=== PATIENT | female | born 1995 | race Caucasian/White ===

== ENCOUNTER 2019-08-21 08:35 | Emergency (ER) | payer BC ==
--- NOTE | 2019-08-21 08:40 | ERPHSYRPT ---
- History of Present Illness Time Seen by Provider: 08/21/19 08:40 Historian: patient Exam Limitations: no limitations Physician History: This is a 23-year-old white female who presents to the emergency department with sudden onset of right flank pain. Patient states that she thinks in the past she might of passed a kidney stone. Patient drove herself to the emergency department. She states that she can get a ride home. Patient denies nausea vomiting or diarrhea. Patient does not have chest pain and she is not short of breath. She is allergic to iodine. She is not on any medications at this time. Timing/Duration: today Activities at Onset: none Quality: sharpness, stabbing Abdominal Pain Onset Location: flank (Left flank) Pain Radiation: no radiation Severity of Pain-Max: moderate Severity of Pain-Current: moderate Modifying Factors: Improves With: nothing Associated Symptoms: denies symptoms Previous symptoms: no prior history Allergies/Adverse Reactions: Iodinated Contrast Media [Iodinated Contrast Media - IV Dye] Allergy (Mild, Verified 07/26/15 22:38) Hives iodine Allergy (Mild, Verified 07/26/15 22:38) Hives Home Medications: Citalopram Hydrobromide 20 mg* [ceLEXa 20 MG] 20 mg PO DAILY 07/26/15 [History] Dextroamphetamine/Amphetamine [Adderall 10 mg Tablet] 10 mg PO DAILY 07/26/15 [History] Hx Tetanus, Diphtheria Vaccination/Date Given: Yes Hx Influenza Vaccination/Date Given: Yes Hx Pneumococcal Vaccination/Date Given: No Travel Risk - International Travel Have you traveled outside of the country in past 3 weeks: No - Coronavirus Screening Are you exhibiting any of the following symptoms?: No Close contact with a COVID-19 positive Pt in past 14-21 Days: No - Review of Systems Constitutional: No Symptoms Eyes: No Symptoms Ears, Nose, & Throat: No Symptoms Respiratory: No Symptoms Cardiac: No Symptoms Abdominal/Gastrointestinal: No Symptoms Genitourinary Symptoms: Flank Pain (Left) Musculoskeletal: No Symptoms Skin: No Symptoms Neurological: No Symptoms Psychological: No Symptoms Endocrine: No Symptoms Hematologic/Lymphatic: No Symptoms Immunological/Allergic: No Symptoms All Other Systems: Reviewed and Negative - Past Medical History Pertinent Past Medical History: No Neurological History: No Pertinent History ENT History: No Pertinent History Cardiac History: No Pertinent History Respiratory History: No Pertinent History Endocrine Medical History: No Pertinent History Musculoskeletal History: No Pertinent History GI Medical History: No Pertinent History History: No Pertinent History Psycho-Social History: No Pertinent History Female Reproductive Disorders: No Pertinent History - Past Surgical History Past Surgical History: No Neuro Surgical History: No Pertinent History Cardiac: No Pertinent History Respiratory: No Pertinent History Gastrointestinal: No Pertinent History Genitourinary: No Pertinent History Musculoskeletal: No Pertinent History Female Surgical History: No Pertinent History - Social History Smoking Status: Never smoker Exposure to second hand smoke: No Drug Use: none Patient Lives Alone: No - Nursing Vital Signs Nursing Vital Signs: Initial Vital Signs Temperature 98.0 F 08/21/19 08:41 Pulse Rate 77 08/21/19 08:41 Respiratory Rate 20 08/21/19 08:41 Blood Pressure 151/106 08/21/19 08:41 O2 Sat by Pulse Oximetry 95 08/21/19 08:41 Pain Scale Pain Intensity 8 - Physical Exam General Appearance: moderate distress, alert, anxiety Eye Exam: PERRL/EOMI, eyes nml inspection Ears, Nose, Throat Exam: normal ENT inspection, moist mucous membranes Neck Exam: normal inspection, non-tender, supple, full range of motion Respiratory Exam: normal breath sounds, lungs clear, airway intact, No chest tenderness, No respiratory distress Cardiovascular Exam: regular rate/rhythm, normal heart sounds, normal peripheral pulses Gastrointestinal/Abdomen Exam: soft, normal bowel sounds, No tenderness, No guarding Pelvic Exam: not done Rectal Exam: not done Back Exam: normal inspection, normal range of motion, CVA tenderness (Left), No vertebral tenderness Extremity Exam: normal inspection, normal range of motion, pelvis stable Neurologic Exam: alert, oriented x 3, cooperative, sifter and miller II-XII nml as tested, normal mood/affect, nml cerebellar function, nml station & gait, sensation nml Skin Exam: normal color, warm, dry Lymphatic Exam: No adenopathy SpO2 Interpretation: normal - Course Nursing assessment & vital signs reviewed: Yes Ordered Tests: Active Orders 24 hr Category Date Time Status IV Insertion STAT Care 08/21/19 08:44 Active ABDOMEN AND PELVIS W/0 CONTRAS [CT] Stat Exams 08/21/19 08:45 Completed CBC W DIFF Stat Lab 08/21/19 08:57 Completed CMP Stat Lab 08/21/19 08:57 Completed HCG QUALITATIVE,SERUM Stat Lab 08/21/19 08:57 Completed LIPASE Stat Lab 08/21/19 08:57 Completed Lactic Acid Stat Lab 08/21/19 08:44 Completed UA W/RFX UR CULTURE Stat Lab 08/21/19 08:44 Uncollected Medication Summary Discontinued Medications Generic Name Dose Route Start Last Admin Trade Name Otonielq PRN Reason Stop Dose Admin Hydromorphone HCl 1 mg 08/21/19 08:44 08/21/19 09:03 Hydromorphone 1 Mg/Ml Ampule IV 08/21/19 08:45 1 mg STAT ONE Administration Hydromorphone HCl Confirm 08/21/19 08:59 Hydromorphone 1 Mg/Ml Ampule Administered 08/21/19 09:00 Dose 1 mg .ROUTE .STK-MED ONE Hydromorphone HCl 0.5 mg 08/21/19 10:28 Hydromorphone 1 Mg/Ml Ampule IV 08/21/19 10:29 STAT ONE Sodium Chloride 1,000 mls @ 999 mls/hr 08/21/19 08:44 08/21/19 09:02 Sodium Chloride 0.9% 1000 Ml IV 08/21/19 09:44 999 mls/hr .Q1H1M STA Administration Sodium Chloride Confirm 08/21/19 08:59 Sodium Chloride 0.9% 1000 Ml Administered 08/21/19 09:00 Dose 1,000 mls @ ud .ROUTE .STK-MED ONE Ketorolac Tromethamine 30 mg 08/21/19 09:42 08/21/19 10:06 Toradol 30 Mg Injection IV 08/21/19 09:43 30 mg STAT ONE Administration Ketorolac Tromethamine Confirm 08/21/19 10:05 Toradol 30 Mg Injection Administered 08/21/19 10:06 Dose 30 mg .ROUTE .STK-MED ONE Ondansetron HCl 4 mg 08/21/19 08:44 08/21/19 09:03 Zofran 4 Mg/2 Ml Vial IV 08/21/19 08:45 4 mg STAT ONE Administration Ondansetron HCl Confirm 08/21/19 08:59 Zofran 4 Mg/2 Ml Vial Administered 08/21/19 09:00 Dose 4 mg .ROUTE .STK-MED ONE Lab/Rad Data: Laboratory Result Diagrams 08/21/19 08:57 08/21/19 08:57 Laboratory Results 08/21/19 08/21/19 08/21/19 Range/Units 08:57 08:57 08:57 WBC 5.2 (4.0-10.5) K/mm3 RBC 4.31 (4.1-5.4) M/mm3 Hgb 12.8 (12.0-16.0) gm/dl Hct 39.3 (35-47) % MCV 91.2 (78-100) fl MCH 29.7 (26-32) pg MCHC 32.6 (32-36) g/dl RDW 13.1 (11.5-14.0) % Plt Count 308 (150-450) K/mm3 MPV 10.3 (7.5-11.0) fl Gran % 48.2 (36.0-66.0) % Eos # (Auto) 0.28 (0-0.5) Absolute Lymphs (auto) 1.75 (1.0-4.6) Absolute Monos (auto) 0.63 (0.0-1.3) Lymphocytes % 33.8 (24.0-44.0) % Monocytes % 12.2 H (0.0-12.0) % Eosinophils % 5.4 H (0.00-5.0) % Basophils % 0.4 (0.0-0.4) % Absolute Granulocytes 2.49 (1.4-6.9) Basophils # 0.02 (0-0.4) Sodium 143 (137-145) mmol/L Potassium 3.4 L (3.5-5.1) mmol/L Chloride 110 H (98-107) mmol/L Carbon Dioxide 25 (22-30) mmol/L Anion Gap 10.8 (5-15) MEQ/L BUN 8 (7-17) mg/dL Creatinine 0.82 (0.52-1.04) mg/dL Estimated GFR > 60.0 ML/MIN Glucose 110 H (74-106) mg/dL Lactic Acid (0.4-2.0) Calcium 9.4 (8.4-10.2) mg/dL Total Bilirubin 0.70 (0.2-1.3) mg/dL AST 23 (14-36) U/L ALT 10 (0-35) U/L Alkaline Phosphatase 58 (38-126) U/L Serum Total Protein 8.5 H (6.3-8.2) g/dL Albumin 4.5 (3.5-5.0) g/dL Lipase 65 (23-300) U/L Serum , Qual NEGATIVE (Negative) 08/21/19 Range/Units 08:44 WBC (4.0-10.5) K/mm3 RBC (4.1-5.4) M/mm3 Hgb (12.0-16.0) gm/dl Hct (35-47) % MCV (78-100) fl MCH (26-32) pg MCHC (32-36) g/dl RDW (11.5-14.0) % Plt Count (150-450) K/mm3 MPV (7.5-11.0) fl Gran % (36.0-66.0) % Eos # (Auto) (0-0.5) Absolute Lymphs (auto) (1.0-4.6) Absolute Monos (auto) (0.0-1.3) Lymphocytes % (24.0-44.0) % Monocytes % (0.0-12.0) % Eosinophils % (0.00-5.0) % Basophils % (0.0-0.4) % Absolute Granulocytes (1.4-6.9) Basophils # (0-0.4) Sodium (137-145) mmol/L Potassium (3.5-5.1) mmol/L Chloride (98-107) mmol/L Carbon Dioxide (22-30) mmol/L Anion Gap (5-15) MEQ/L BUN (7-17) mg/dL Creatinine (0.52-1.04) mg/dL Estimated GFR ML/MIN Glucose (74-106) mg/dL Lactic Acid 0.7 (0.4-2.0) Calcium (8.4-10.2) mg/dL Total Bilirubin (0.2-1.3) mg/dL AST (14-36) U/L ALT (0-35) U/L Alkaline Phosphatase (38-126) U/L Serum Total Protein (6.3-8.2) g/dL Albumin (3.5-5.0) g/dL Lipase (23-300) U/L Serum , Qual (Negative) - Progress Progress: improved, pain not gone completely, re-examined Progress Note: 08/21/19 10:29 CAT scan of the abdomen and pelvis reveals a 1 to 2 mm right UVJ calculus producing partial obstruction active uropathy. There is mild edema of the right kidney, the right ureter is prominent up to 8 mm. There is moderate hydronephrosis. Counseled pt/family regarding: lab results, diagnosis, need for follow-up, rad results - Departure Departure Disposition: Home Clinical Impression: Ureterolithiasis Condition: Stable Critical Care Time: No Additional Instructions: Drink plenty of fluids. Use ibuprofen 600 mg with food orally 3 times a day for the next 5 days. Take medication as prescribed. Follow-up with urologist. Call tomorrow for appointment. Return to the emergency department if symptoms worsen. Prescriptions: Hydrocodone/APAP 5-325 Tab^^^ [[place] 5-325 Tablet^^^] 1 tab PO Q6HPRN PRN #10 tablet MDD 6 PRN Reason: Pain
[2019-08-21] MEDS ORDERED: Sodium Chloride 0.9% 1000 ML 1,000 ML IV STA (08:44)
[2019-08-21] MEDS ORDERED: Zofran 4 MG/2 ML VIAL IV ONE (08:44)
[2019-08-21] MEDS ORDERED: Hydromorphone 1 mg/ml Ampule IV ONE ×2 (08:44→10:28)
[2019-08-21] MEDS ORDERED: Sodium Chloride 0.9% 1000 ML 1,000 ML ONE (08:59)
[2019-08-21] MEDS ORDERED: Hydromorphone 1 mg/ml Ampule ONE ×2 (08:59→10:41)
[2019-08-21] MEDS ORDERED: Zofran 4 MG/2 ML VIAL ONE (08:59)
[2019-08-21 09:14] LABS: Absolute Neutrophil Ct (ANC) 2.49 (1.4-6.9); BASOPHIL % 0.4 % (0.0-0.4); Basophil (Absolute #) 0.02 (0-0.4); Eosinophil % 5.4 % (0.00-5.0); Eosinophil (Absolute #) 0.28 (0-0.5); Hematocrit 39.3 % (35-47); Hemoglobin 12.8 gm/dl (12.0-16.0); Lymphocyte (Absolute #) 1.75 (1.0-4.6); Lymphocytes % 33.8 % (24.0-44.0); Mean Cell Volume 91.2 fl (78-100); Mean Corpuscular Hemoglobin 29.7 pg (26-32); Mean Corpuscular Hgb Concent. 32.6 g/dl (32-36); Mean Platelet Volume 10.3 fl (7.5-11.0); Monocyte (Absolute #) 0.63 (0.0-1.3); Monocytes % 12.2 % (0.0-12.0); Neutrophil % 48.2 % (36.0-66.0); Platelet Count 308 K/mm3 (150-450); Red Blood Count 4.31 M/mm3 (4.1-5.4); Red Cell Distribution Width 13.1 % (11.5-14.0); White Blood Count 5.2 K/mm3 (4.0-10.5)
[2019-08-21 09:34] LABS: ALBUMIN 4.5 g/dL (3.5-5.0); ALKALINE PHOSPHATASE 58 U/L (38-126); ANION GAP 10.8 MEQ/L (5-15); BLOOD UREA NITROGEN 8 mg/dL (7-17); CHLORIDE 110 mmol/L (98-107); Calcium 9.4 mg/dL (8.4-10.2); Carbon Dioxide 25 mmol/L (22-30); Creatinine 1 0.82 mg/dL (0.52-1.04); Glucose 110 mg/dL (74-106); LIPASE 65 U/L (23-300); Potassium 3.4 mmol/L (3.5-5.1); SGOT/AST 23 U/L (14-36); SGPT/ALT 10 U/L (0-35); SODIUM 143 mmol/L (137-145); Total Protein 8.5 g/dL (6.3-8.2)
[2019-08-21] MEDS ORDERED: TORAdol 30 mg Injection IV ONE (09:42)
[2019-08-21] MEDS ORDERED: TORAdol 30 mg Injection ONE (10:05)
--- NOTE | 2019-08-21 10:09 | XRAY ---
Indication: Right flank pain. Multiple contiguous axial images obtained through the abdomen and pelvis without contrast as ordered. Comparison: CT abdomen April 08, 2006. Lung bases clear. Heart is not enlarged. Noncontrasted stomach and bowel loops appear nonobstructed. Normal appendix with now faint distal appendicolith. No free fluid/air. Right kidney is now mildly edematous with moderate hydronephrosis. Right ureter is also prominent up to 8 mm. Query 1-2 mm right UVJ calculus (image 76). No free fluid/air. Remaining liver, pancreas, spleen, adrenal glands, kidneys, left kidney, left ureter, urinary bladder, uterus, and aorta appear unremarkable for noncontrast exam. Osseous structures intact. Impression: 1-2 mm right UVJ calculus producing partial obstructive uropathy as detailed.
[2019-08-21 10:50] VITALS: BP 146/106; PULSE 73; O2SAT 97
== END 2019-08-21 11:04 | disposition home or self-care (01) ==
LOC: ED 08:35
DX: N20.1 Calculus of ureter (principal)
CPT/HCPCS: 36000; 36415; 74176; 80053; 81025; 83605; 83690; 85025; 96360; 96374; 96375; 96376; 99284; J1170; J1885; J2405

== ENCOUNTER 2022-05-20 01:13 | Inpatient (IN) | payer BC ==
[2022-05-20 01:59] LABS: Appearance Cloudy (Clear); Bacteria None Seen /HPF (None Seen); Bilirubin Negative (Negative); Blood Negative (Negative); Epithelial Cells None Seen /HPF (None Seen); Glucose, Urine Negative (Negative); Hyaline Casts NONE SEEN /LPF (0-2); Ketones Negative (Negative); Leukocyte Esterase Negative (Negative); Nitrite Negative (Negative); Ph 7.5 (4.6-8.0); Protein,Urine Dip Negative (Negative); RBC 0-2 /HPF (0-5); Urobilinogen 0.2 mg/dL (0.2)
[2022-05-20 02:03] LABS: ADD URINE CULTURE? NO (NO)
[2022-05-20 02:09] LABS: Amphetamine,Urine NEGATIVE (NEGATIVE); Barbiturate,Urine NEGATIVE (NEGATIVE); Benzodiazepine,Urine NEGATIVE (NEGATIVE); Cocaine,Urine NEGATIVE (NEGATIVE); Methadone,Urine NEGATIVE (NEGATIVE); Opiate,Urine NEGATIVE (NEGATIVE); PCP,Urine NEGATIVE (NEGATIVE); THC,Urine NEGATIVE (NEGATIVE)
[2022-05-20] MEDS ORDERED: Celestone Soluspan 6MG/ML IM ONE (02:56)
[2022-05-20] MEDS ORDERED: Lactated Ringers 1,000 ML IV SCH (03:00)
[2022-05-20] MEDS ORDERED: Magnesium Sulfate 40 Gm/1000 Ml H2O Premix*** 1,000 ML IV SCH (03:00)
[2022-05-20 03:33] LABS: Hematocrit 29.8 % (35-47); Hemoglobin 9.6 g/dL (12.0-16.0); Mean Corpuscular Hemoglobin 28.7 pg (26-32); Mean Corpuscular Hgb Concent. 32.2 g/dL (32-36); Mean Platelet Volume 9.9 fL (7.5-11.0); Platelet Count 284 x10^3/uL (150-450); Red Blood Count 3.35 x10^6/uL (4.1-5.4); Red Cell Distribution Width 12.4 % (11.5-14.0); White Blood Count 10.4 x10^3/uL (4.0-10.5)
[2022-05-20 03:47] LABS: ALBUMIN 3.1 g/dL (3.5-5.0); ALKALINE PHOSPHATASE 80 U/L (38-126); ANION GAP 12.3 MEQ/L (5-15); BLOOD UREA NITROGEN 6 mg/dL (7-17); CHLORIDE 107 mmol/L (98-107); Calcium 8.2 mg/dL (8.4-10.2); Carbon Dioxide 22 mmol/L (22-30); Creatinine 1 0.45 mg/dL (0.52-1.04); EST GLOMERULAR FILTRATION RATE > 60.0 ML/MIN; Glucose 87 mg/dL (74-106); Potassium 3.6 mmol/L (3.5-5.1); SGOT/AST 24 U/L (14-36); SGPT/ALT 16 U/L (0-35); SODIUM 138 mmol/L (137-145)
[2022-05-20 04:12] LABS: INR 0.89 (0.8-3.0); PROTIME 9.8 SECONDS (9.4-12.5)
[2022-05-20] MEDS ORDERED: OMNIPEN 2 GM ONE (06:01)
[2022-05-20] MEDS ORDERED: Sodium Chloride 100ML MINI-BAG PLUS 100 ML IV ONE (06:01)
[2022-05-20] MEDS ORDERED: OMNIPEN 2 GM*** 2 G in Sodium Chloride 100ML MINI-BAG PLUS 100 ML IV ONE (06:09)
[2022-05-20] MEDS ORDERED: PITOCIN 30 UNITS/ LR 500 ML 500 ML IV ONE (06:09)
[2022-05-20] MEDS ORDERED: Lactated Ringers 1,000 ML IV ONE (06:11)
[2022-05-20] MEDS ORDERED: XYLOCAINE 1% HCL 20 ML MDV IJ PRN (06:12)
[2022-05-20] MEDS ORDERED: PITOCIN 30 UNITS/ LR 500 ML 30 UNITS/500 ML PLAST..BAG IV SCH (06:30)
--- NOTE | 2022-05-20 06:45 | PCM.HP ---
History of Present Illness - Chief Complaint Chief Complaint: c/o vaginal bleeding History of Present Illness: is a 26 year old female at 26 5/7 wks EGA dichorionic/diamniotic twins patient of Dr Finn presented c/o contractions, reportedly 3cm on arrival and laboring, started on mag and when transport team arrived patient was 6cm dilated. I was contacted by Dr Finn and nursing [facility] maternal transport team and arrived and assessed SVE 6cm on arrival and recommend delivery here with transport of infants via NICU transport. last ultrasound with MFM showed one twin was breech, I discussed with patient and she prefers to delivery via which was recommended by Dr Finn as well. - Review of Systems Constitutional: No Fever, No Chills Respiratory: No Cough, No Short Of Breath Cardiac: No Chest Pain, No Edema, No Syncope Abdominal/Gastrointestinal: No Abdominal Pain, No Nausea, No Vomiting, No Diarrhea Genitourinary Symptoms: Other (contractions per HPI) All Other Systems: Reviewed and Negative Medications & Allergies Home Medications: Home Medication List Aspirin 81 gm Chew [Baby Aspirin 81 mg Chew] 81 mg PO DAILY 05/20/22 [History Confirmed 05/20/22] Pediatric Multivitamin No.42 [Flintstones] 2 each PO DAILY 05/20/22 [History Con firmed 05/20/22] Allergies/Adverse Reactions: Allergies Allergy/AdvReac Type Severity Reaction Status Date / Time Iodinated Contrast Media Allergy Mild Hives Verified 07/26/15 22:38 [Iodinated Contrast Media - IV Dye] iodine Allergy Mild Hives Verified 07/26/15 22:38 - Past Medical History Past Medical History: No Neurological History: No Pertinent History ENT History: No Pertinent History Cardiac History: No Pertinent History Respiratory History: No Pertinent History Endocrine Medical History: No Pertinent History Musculoskelatal History: No Pertinent History GI Medical History: No Pertinent History History: No Pertinent History Pyscho-Social History: No Pertinent History Reproductive Disorders: No Pertinent History - Female History Are you now?: Yes Expected Date of Delivery: 08/22/22 - Past Surgical History Past Surgical History: No Neuro Surgical History: No Pertinent History Cardiac History: No Pertinent History Respiratory Surgery: No Pertinent History GI Surgical History: No Pertinent History Genitourinary Surgical Hx: No Pertinent History Musculskeletal Surgical Hx: No Pertinent History Female Surgical History: No Pertinent History - Social History Smoking Status: Never smoker Exposure to second hand smoke: No Alcohol: None Drug Use: none - Physical Exam Vital Signs: Vital Signs - 24 hr Temp Pulse Resp BP BP Pulse Ox 05/20/22 05:00 92 H 98/64 05/20/22 04:45 98 F 86 18 97/59 104/69 97 05/20/22 04:30 88 97/59 05/20/22 04:19 88 18 104/69 97 05/20/22 04:15 85 104/69 05/20/22 04:00 88 104/69 05/20/22 03:45 89 18 105/69 98 05/20/22 03:30 95 H 18 103/65 103/65 97 05/20/22 03:15 98 F 87 16 106/63 106/63 99 05/20/22 02:10 96 H 16 106/69 98 05/20/22 01:30 98.1 F 86 16 106/64 106/64 98 General Appearance: no apparent distress Neurologic Exam: alert, oriented x 3 Respiratory Exam: normal breath sounds, lungs clear, No respiratory distress Cardiovascular Exam: regular rate/rhythm, normal heart sounds, normal peripheral pulses Gastrointestinal/Abdomen Exam: other (gravid abdomen, soft and nontender) Extremity Exam: normal inspection, normal range of motion, pelvis stable Skin Exam: normal color, warm, dry, No rash Results - Labs Lab/Micro Results: Lab Results-Last 24 Hours 05/20/22 05/20/22 05/20/22 Range/Units 01:50 01:50 03:00 WBC (4.0-10.5) x10^3/uL RBC (4.1-5.4) x10^6/uL Hgb (12.0-16.0) g/dL Hct (35-47) % MCV (78-100) fL MCH (26-32) pg MCHC (32-36) g/dL RDW (11.5-14.0) % Plt Count (150-450) x10^3/uL MPV (7.5-11.0) fL PT (9.4-12.5) SECONDS INR (0.8-3.0) APTT 24.6 L (25.1-36.5) SECONDS Sodium (137-145) mmol/L Potassium (3.5-5.1) mmol/L Chloride (98-107) mmol/L Carbon Dioxide (22-30) mmol/L Anion Gap (5-15) MEQ/L BUN (7-17) mg/dL Creatinine (0.52-1.04) mg/dL Estimated GFR ML/MIN Glucose (74-106) mg/dL Calcium (8.4-10.2) mg/dL Magnesium (1.6-2.3) mg/dL Total Bilirubin (0.2-1.3) mg/dL AST (14-36) U/L ALT (0-35) U/L Alkaline Phosphatase (38-126) U/L Serum Total Protein (6.3-8.2) g/dL Albumin (3.5-5.0) g/dL Urine Color Yellow (Yellow) Urine Appearance Cloudy A (Clear) Urine pH 7.5 (4.6-8.0) Ur Specific Simms 1.010 (1.005-1.030) Urine Protein Negative (Negative) Urine Glucose (UA) Negative (Negative) mg/dL Urine Ketones Negative (Negative) Urine Blood Negative (Negative) Urine Nitrite Negative (Negative) Urine Bilirubin Negative (Negative) Urine Urobilinogen 0.2 (0.2) mg/dL Ur Leukocyte Esterase Negative (Negative) U Hyaline Cast (Auto) NONE SEEN (0-2) /LPF Urine Microscopic RBC 0-2 (0-5) /HPF Urine Microscopic WBC 3-5 (0-5) /HPF Ur Epithelial Cells None Seen (None Seen) /HPF Urine Bacteria None Seen (None Seen) /HPF Urine Culture Reflexed NO (NO) Urine Opiates Level NEGATIVE (NEGATIVE) Ur Methadone NEGATIVE (NEGATIVE) Urine Barbiturates NEGATIVE (NEGATIVE) Ur Phencyclidine (PCP) NEGATIVE (NEGATIVE) Urine Amphetamine NEGATIVE (NEGATIVE) U Benzodiazepine Level NEGATIVE (NEGATIVE) Urine Cocaine NEGATIVE (NEGATIVE) Urine Marijuana (THC) NEGATIVE (NEGATIVE) 05/20/22 05/20/22 05/20/22 Range/Units 03:00 03:30 03:30 WBC 10.4 (4.0-10.5) x10^3/uL RBC 3.35 L (4.1-5.4) x10^6/uL Hgb 9.6 L (12.0-16.0) g/dL Hct 29.8 L (35-47) % MCV 89.0 (78-100) fL MCH 28.7 (26-32) pg MCHC 32.2 (32-36) g/dL RDW 12.4 (11.5-14.0) % Plt Count 284 (150-450) x10^3/uL MPV 9.9 (7.5-11.0) fL PT 9.8 (9.4-12.5) SECONDS INR 0.89 (0.8-3.0) APTT (25.1-36.5) SECONDS Sodium 138 (137-145) mmol/L Potassium 3.6 (3.5-5.1) mmol/L Chloride 107 (98-107) mmol/L Carbon Dioxide 22 (22-30) mmol/L Anion Gap 12.3 (5-15) MEQ/L BUN 6 L (7-17) mg/dL Creatinine 0.45 L (0.52-1.04) mg/dL Estimated GFR > 60.0 ML/MIN Glucose 87 (74-106) mg/dL Calcium 8.2 L (8.4-10.2) mg/dL Magnesium (1.6-2.3) mg/dL Total Bilirubin 0.30 (0.2-1.3) mg/dL AST 24 (14-36) U/L ALT 16 (0-35) U/L Alkaline Phosphatase 80 (38-126) U/L Serum Total Protein 7.0 (6.3-8.2) g/dL Albumin 3.1 L (3.5-5.0) g/dL Urine Color (Yellow) Urine Appearance (Clear) Urine pH (4.6-8.0) Ur Specific Simms (1.005-1.030) Urine Protein (Negative) Urine Glucose (UA) (Negative) mg/dL Urine Ketones (Negative) Urine Blood (Negative) Urine Nitrite (Negative) Urine Bilirubin (Negative) Urine Urobilinogen (0.2) mg/dL Ur Leukocyte Esterase (Negative) U Hyaline Cast (Auto) (0-2) /LPF Urine Microscopic RBC (0-5) /HPF Urine Microscopic WBC (0-5) /HPF Ur Epithelial Cells (None Seen) /HPF Urine Bacteria (None Seen) /HPF Urine Culture Reflexed (NO) Urine Opiates Level (NEGATIVE) Ur Methadone (NEGATIVE) Urine Barbiturates (NEGATIVE) Ur Phencyclidine (PCP) (NEGATIVE) Urine Amphetamine (NEGATIVE) U Benzodiazepine Level (NEGATIVE) Urine Cocaine (NEGATIVE) Urine Marijuana (THC) (NEGATIVE) 05/20/22 Range/Units 03:30 WBC (4.0-10.5) x10^3/uL RBC (4.1-5.4) x10^6/uL Hgb (12.0-16.0) g/dL Hct (35-47) % MCV (78-100) fL MCH (26-32) pg MCHC (32-36) g/dL RDW (11.5-14.0) % Plt Count (150-450) x10^3/uL MPV (7.5-11.0) fL PT (9.4-12.5) SECONDS INR (0.8-3.0) APTT (25.1-36.5) SECONDS Sodium (137-145) mmol/L Potassium (3.5-5.1) mmol/L Chloride (98-107) mmol/L Carbon Dioxide (22-30) mmol/L Anion Gap (5-15) MEQ/L BUN (7-17) mg/dL Creatinine (0.52-1.04) mg/dL Estimated GFR ML/MIN Glucose (74-106) mg/dL Calcium (8.4-10.2) mg/dL Magnesium 1.6 (1.6-2.3) mg/dL Total Bilirubin (0.2-1.3) mg/dL AST (14-36) U/L ALT (0-35) U/L Alkaline Phosphatase (38-126) U/L Serum Total Protein (6.3-8.2) g/dL Albumin (3.5-5.0) g/dL Urine Color (Yellow) Urine Appearance (Clear) Urine pH (4.6-8.0) Ur Specific Simms (1.005-1.030) Urine Protein (Negative) Urine Glucose (UA) (Negative) mg/dL Urine Ketones (Negative) Urine Blood (Negative) Urine Nitrite (Negative) Urine Bilirubin (Negative) Urine Urobilinogen (0.2) mg/dL Ur Leukocyte Esterase (Negative) U Hyaline Cast (Auto) (0-2) /LPF Urine Microscopic RBC (0-5) /HPF Urine Microscopic WBC (0-5) /HPF Ur Epithelial Cells (None Seen) /HPF Urine Bacteria (None Seen) /HPF Urine Culture Reflexed (NO) Urine Opiates Level (NEGATIVE) Ur Methadone (NEGATIVE) Urine Barbiturates (NEGATIVE) Ur Phencyclidine (PCP) (NEGATIVE) Urine Amphetamine (NEGATIVE) U Benzodiazepine Level (NEGATIVE) Urine Cocaine (NEGATIVE) Urine Marijuana (THC) (NEGATIVE) - Radiology Impressions Radiology Exams & Impressions: Radiology Procedures Category Date Time Status OB >14 WKS ADDL GESTATION [US] Routine Exams 05/20/22 05:56 Ordered OB FOLLOW UP PER FETUS [US] Stat Exams 05/20/22 05:48 Ordered Assessment/Plan (1) labor in third trimester Current Visit: Yes Status: Acute Assessment & Plan: patient consented for primary for labor in twin gestation with irregular lie. I discussed risk, benefits and alternatives to and patient voiced understanding including but not limited to risk of bleeding, risk of infection and risk of damage to surrounding structures. NICU transport team is in route to hospital at this time and delivery will be coordinated when they are present. heart tracing reviewed twin A 130's cat 1 twin B 130's cat 1 Code(s): O60.03 - LABOR WITHOUT DELIVERY, THIRD TRIMESTER (2) Dichorionic diamniotic twin gestation Current Visit: Yes Status: Acute Code(s): O30.049 - TWIN , DICHO RIONIC/DIAMNIOTIC, UNSP TRIMESTER
[2022-05-20] MEDS ORDERED: Astramorph-Pf 5 MG/10 ML ONE (06:57)
[2022-05-20] MEDS ORDERED: Pitocin 10 UNITS/ML ONE (06:57)
[2022-05-20] MEDS ORDERED: SOD CITRATE-CITRIC ACID SOLN PO SCH (07:00)
[2022-05-20] MEDS ORDERED: Reglan 10 MG/2 ML IV SCH (07:00)
[2022-05-20] MEDS ORDERED: Pepcid 20 MG VIAL IV SCH (07:00)
[2022-05-20] MEDS ORDERED: CEFAZOLIN 2 GM-D5W BAG** 2 GM/50 ML ML IV SCH (07:00)
[2022-05-20 07:04] LABS: ABO TYPING O; Antibody Screen NEGATIVE (NEGATIVE); RH TYPING POSITIVE
[2022-05-20] MEDS ORDERED: Mylicon 80MG PO PRN (07:55)
[2022-05-20] MEDS ORDERED: MOTRIN 400 MG PO PRN (07:55)
[2022-05-20] MEDS ORDERED: BENADRYL 50 MG/ML IV PRN (07:58)
[2022-05-20] MEDS ORDERED: CLARITIN 10 MG PO PRN (07:58)
[2022-05-20] MEDS ORDERED: Narcan 0.4 MG/ML IV PRN (07:58)
[2022-05-20] MEDS ORDERED: PERCOCET TABLET 5/325MG PO PRN (07:58)
[2022-05-20] MEDS ORDERED: Versed 2 MG/2 ML Injection ONE (08:15)
[2022-05-20] MEDS ORDERED: Marcaine 0.5%/Epinephrine 10 ML ONE (08:30)
[2022-05-20] MEDS ORDERED: HOLD NARCOTIC ANALGESICS AND SEDATIVES X24 HR MC PRN (08:30)
[2022-05-20] MEDS ORDERED: TORAdol 30 mg Injection ONE (08:51)
[2022-05-20] MEDS ORDERED: DEMEROL 50 MG ONE (09:18)
[2022-05-20] MEDS: Dextrose 5%-Lr IV Solution 1000 ML 1,000 ML IV SCH ×2 (11:30→19:10)
[2022-05-20 12:09] LABS: Absolute Neutrophil Ct (ANC) 15.04 x10^3/uL (1.4-6.9); BASOPHIL % 0.1 % (0.0-0.4); Basophil (Absolute #) 0.02 x10^3/uL (0-0.4); Eosinophil (Absolute #) 0 x10^3/uL (0-0.5); Hematocrit 25.2 % (35-47); Hemoglobin 8.1 g/dL (12.0-16.0); IMMATURE GRAN # 0.08 x10^3u/L (0.00-0.03); IMMATURE GRAN % 0.5 % (0.00-0.4); Lymphocyte (Absolute #) 0.88 x10^3/uL (1.0-4.6); Lymphocytes % 5.2 % (24.0-44.0); Mean Cell Volume 90.3 fL (78-100); Mean Corpuscular Hgb Concent. 32.1 g/dL (32-36); Mean Platelet Volume 9.8 fL (7.5-11.0); Monocyte (Absolute #) 0.89 x10^3/uL (0.0-1.3); Monocytes % 5.3 % (0.0-12.0); Neutrophil % 88.9 % (36.0-66.0); Platelet Count 229 x10^3/uL (150-450); Red Blood Count 2.79 x10^6/uL (4.1-5.4); Red Cell Distribution Width 12.3 % (11.5-14.0); White Blood Count 16.9 x10^3/uL (4.0-10.5)
[2022-05-20] MEDS: Zofran 4 MG/2 ML VIAL IV PRN ×2 (12:10→18:01)
[2022-05-20] MEDS ORDERED: Adacel Vial IM ONE (15:20)
[2022-05-20] MEDS: TYLENOL EXTRA STRENGTH 500 MG PO PRN (18:01)
[2022-05-20] MEDS ORDERED: LANSINOH 40 GM ONE (18:28)
[2022-05-20] MEDS: Docusate Sodium 100 MG PO SCH ×2 (20:00→21:12)
[2022-05-21] MEDS: TYLENOL EXTRA STRENGTH 500 MG PO PRN (03:18)
[2022-05-21] MEDS ORDERED: TORAdol 30 mg Injection IV PRN (05:55)
[2022-05-21 05:58] LABS: Absolute Neutrophil Ct (ANC) 10.61 x10^3/uL (1.4-6.9); BASOPHIL % 0.2 % (0.0-0.4); Basophil (Absolute #) 0.03 x10^3/uL (0-0.4); Eosinophil % 0.2 % (0.00-5.0); Eosinophil (Absolute #) 0.03 x10^3/uL (0-0.5); Hematocrit 23.4 % (35-47); Hemoglobin 7.5 g/dL (12.0-16.0); IMMATURE GRAN # 0.06 x10^3u/L (0.00-0.03); IMMATURE GRAN % 0.4 % (0.00-0.4); Lymphocyte (Absolute #) 1.86 x10^3/uL (1.0-4.6); Lymphocytes % 13.5 % (24.0-44.0); Mean Cell Volume 90.7 fL (78-100); Mean Corpuscular Hemoglobin 29.1 pg (26-32); Mean Corpuscular Hgb Concent. 32.1 g/dL (32-36); Monocyte (Absolute #) 1.19 x10^3/uL (0.0-1.3); Monocytes % 8.6 % (0.0-12.0); Neutrophil % 77.1 % (36.0-66.0); Platelet Count 218 x10^3/uL (150-450); Red Blood Count 2.58 x10^6/uL (4.1-5.4); Red Cell Distribution Width 12.5 % (11.5-14.0); White Blood Count 13.8 x10^3/uL (4.0-10.5)
[2022-05-21 08:45] VITALS: BP 104/59; PULSE 62; O2SAT 100
[2022-05-21] MEDS ORDERED: NORCO 5/325 MG PO PRN (09:00)
--- NOTE | 2022-05-21 09:40 | PCM.DS ---
Discharge Summary Date of Admission: 05/20/22 05:00 Admitting Physician: MILO CAGLE DO Consults: Consults on Case 05/20/22 07:58 Notify Anesthesia Provider PRN Primary Care Provider: MARKY SIERRA Allergies Allergies Iodinated Contrast Media [Iodinated Contrast Media - IV Dye] Allergy (Mild, Verified 07/26/15 22:38) [facility] iodine Allergy (Mild, Verified 07/26/15 22:38) [facility] Summary - Hospital Course Hospital Course: patient arrived with twin gestation arrived in active labor at 26 5/7 wks EGA, p rogressed to 7cm so had primary here, twin B was transverse. she has done well post op, hgb preop 9.2 postop 7.5 with no symptoms. mild lochia, ambulating and voiding well. no problems or concerns. pumping breastmilk and intends to breastfeed. - Vitals & Intake/Output Vital Signs: Vital Signs Temperature 98.7 F 05/21/22 08:00 Pulse Rate 62 05/21/22 08:00 Respiratory Rate 16 05/21/22 08:00 Blood Pressure 104/59 05/21/22 08:00 O2 Sat by Pulse Oximetry 100 05/21/22 08:00 Intake & Output: Intake & Output 05/18/22 05/19/22 05/20/22 05/21/22 11:59 11:59 11:59 11:59 Intake Total 820 2089 Output Total 1450 8125 Balance -630 -3186 Weight 83.007 kg - Lab Result Diagrams: 05/21/22 05:45 05/20/22 03:30 Lab Results-Last 24 Hrs: Lab Results-Last 24 Hours 05/20/22 05/21/22 Range/Units 11:59 05:45 WBC 16.9 H 13.8 H (4.0-10.5) x10^3/uL RBC 2.79 L 2.58 L (4.1-5.4) x10^6/uL Hgb 8.1 L 7.5 L (12.0-16.0) g/dL Hct 25.2 L 23.4 L (35-47) % MCV 90.3 90.7 (78-100) fL MCH 29.0 29.1 (26-32) pg MCHC 32.1 32.1 (32-36) g/dL RDW 12.3 12.5 (11.5-14.0) % Plt Count 229 218 (150-450) x10^3/uL MPV 9.8 10.0 (7.5-11.0) fL Gran % 88.9 H 77.1 H (36.0-66.0) % Immature Gran % (Auto) 0.5 H 0.4 (0.00-0.4) % Nucleat RBC Rel Count 0.0 0.0 (0.00-0.1) % Eos # (Auto) 0 0.03 (0-0.5) x10^3/uL Immature Gran # (Auto) 0.08 H 0.06 H (0.00-0.03) x10^3u/L Absolute Lymphs (auto) 0.88 L 1.86 (1.0-4.6) x10^3/uL Absolute Monos (auto) 0.89 1.19 (0.0-1.3) x10^3/uL Absolute Nucleated RBC 0.00 0.00 (0.00-0.01) x10^3u/L Lymphocytes % 5.2 L 13.5 L (24.0-44.0) % Monocytes % 5.3 8.6 (0.0-12.0) % Eosinophils % 0.0 0.2 (0.00-5.0) % Basophils % 0.1 0.2 (0.0-0.4) % Absolute Granulocytes 15.04 H 10.61 H (1.4-6.9) x10^3/uL Basophils # 0.02 0.03 (0-0.4) x10^3/uL Discharge Exam General Appearance: no apparent distress Neurologic Exam: alert, oriented x 3 Respiratory Exam: normal breath sounds, lungs clear, No respiratory distress Cardiovascular Exam: regular rate/rhythm, normal heart sounds Gastrointestinal/Abdomen Exam: soft, other (incision clean,dry, intact and well approximated. fundus firm), No tenderness, No mass Extremity Exam: normal inspection, normal range of motion Wound Assessment: Skin/Wound Assessment Wound/Incision Assessment Start: 05/20/22 2 3:04 Text: Status: Active Freq: Q6H Protocol: Document 05/21/22 05:04 (Rec: 05/21/22 06:38 [id number]) Wound/Incision Assessment Lower Anterior Abdomen Wound Type Incision Dressing Status Dry & Intact,Drainage circled Drainage Amount Minimal Drainage Description Brown Drainage Odor None/Absent Final Diagnosis/Problem List - Final Discharge Diagnosis/Problem (1) delivery delivered Current Visit: Yes Status: Acute Code(s): O82 - ENCOUNTER FOR DELIVERY WITHOUT INDICATION (2) Twin delivery by Current Visit: Yes Status: Acute Code(s): O30.009 - TWIN , UNSP NUM PLCNTA & AMNIO SACS, UNSP TRIMESTER - Discharge Disposition: Home, Self-Care Condition: Stable Prescriptions: New Docusate Sodium 100 mg [Docusate Sodium 100 MG] 100 mg PO BID #60 cap Iron Polysaccharides Complex [Ferrex 150] 150 mg PO DAILY #30 cap Hydrocodone/Acetaminophen [Hydrocodone-Acetamin 7.5-325] 1 each PO Q6H PRN PRN #28 tablet MDD 4 PRN Reason: Pain Continue Pediatric Multivitamin No.42 [Flintstones] 2 each PO DAILY Discontinued Aspirin 81 gm Chew [Baby Aspirin 81 mg Chew] 81 mg PO DAILY Follow up with: MARKY SIERRA NP [Primary Care Provider] -
[2022-05-21] MEDS ORDERED: FERREX 150 PO SCH (10:00)
[2022-05-21] MEDS: Docusate Sodium 100 MG PO SCH (10:24)
--- NOTE | 2022-05-22 13:32 | OP ---
SURGERY DATE/TIME: 05/20/2022 0753 PREOPERATIVE DIAGNOSES: 1) Dichorionic diamniotic twin gestation in active labor. 2) Abnormal lie. POSTOPERATIVE DIAGNOSES: 1) Dichorionic diamniotic twin gestation in active labor. 2) Abnormal lie. PROCEDURE: Primary low transverse section. SURGEON: Sarkis Ramachandran M.D. ANESTHESIA: Spinal by Cesar Mahmood CRNA. QUANTITATIVE BLOOD LOSS: 650 ml. IV FLUIDS: 1900 ml of Crystalloid. URINE OUTPUT: 100 ml of clear straw-colored urine. SPECIMEN: Both placenta was sent to pathology. DESCRIPTION OF PROCEDURE: The patient is a 26-year-old 1, para 0 who arrived to labor and delivery department at 26 weeks and 5 days estimated gestational age complaining of contractions. She was assessed and found to be at 3 cm cervical dilatation and OB staff contacted Dr. Finn so he ordered magnesium sulfate and planned to transfer the patient to [facility] in [place]. Upon arrival of the maternal transport team the patient had progressed to [address] Finn consulted Dr. Castillo [facility] at [facility] who recommended delivery here and transfer both babies to the NICU due to risk of transport and eminent delivery. The patient's ultrasound had previously shown Twin B to be in a breech presentation. I discussed the risks, benefits and alternatives with the mom including adverse lie and recommended primary section in conjunction with my discussion with Dr. Finn. The patient consented and was reassured and preferred to be delivered section as opposed to attempt vaginal delivery. She went to the OR and underwent spinal anesthesia and was prepped and draped in the usual sterile fashion. [facility] Intensive [facility] Transport was present and on standby at the time of delivery. After adequate anesthesia was assessed, a low transverse skin incision was made by knife and carried down through the subcutaneous fat to the level of the fascia. The fascia was nicked on both sides of the midline and extended horizontal using curved Camara scissors. The superior free edge of the fascia was grasped with Shruthi clamps and the underlying rectus muscles were dissected free. The same was repeated inferiorly. The peritoneal cavity was opened in blunt horizontal fashion and extended horizontally. Next, a bladder blade was created and reflected over the lower uterine segment. Transverse uterine incision was made by knife and carried down to the level of the amniotic membranes which were artificially ruptured. Twin A was delivered from vertex presentation. The cord was clamped and cut. He was handed off to the awaiting nursery team. Next, Twin B was found to be in transverse lie and was manipulated to go over vertex. The cord was clamped and cut and likewise he was handed off to the awaiting nursery team. Placenta were both manually extracted and the uterus was exteriorized. The uterine cavity was sponge curetted clean with a moist lap sponge. The uterine incision was closed with #1 chromic in a running locked fashion. Two layers were used to close the uterus. It showed good closure and good hemostasis. The posterior cul-de-sac was wiped free of blood and clot with moist lap sponge and the uterus was returned to the peritoneal cavity. Uterine incisions were again inspected and noted to be hemostatic with good closure and the lateral gutters were both wiped free of blood and clot with moist lap sponge. The patient had clear urine in the Plaza catheter and bladder was inspected and noted to be within normal limits. Plaza bulb was palpable. Next, the fascia was closed with 0 Vicryl in a running fashion with good closure and good hemostasis achieved at that level. The subcutaneous fat was irrigated with warm, sterile saline and any areas of bleeding were cauterized with electrocautery. Finally, the skin layer was closed with 4-0 undyed Vicryl in a running subcuticular fashion. Steri-Strips and occlusive dressing were placed over the incision and the patient was sent to the recovery room in good condition. Both babies were intubated at the time of delivery by the transport team, received Curosurf and were being mechanically ventilated and were stable following delivery. Both were noted to have some respiratory effort at the time of delivery.
== END 2022-05-21 11:51 | disposition home or self-care (01) | DRG 788 ==
LOC: OB 01:13 → OBSVTOIN 05:00
PROVIDERS: ADMIT Obstetrics & Gynecology; ATTEND Obstetrics & Gynecology
PROC: 10D00Z1 Extraction of Products of Conception, Low, Open Approach (ICD-10-PCS; principal; 2022-05-20)
DX: O60.12X0 Preterm labor second trimester with preterm delivery second trimester, not applicable or unspecified (principal); O32.9XX0 Maternal care for malpresentation of fetus, unspecified, not applicable or unspecified; O30.049 Twin pregnancy, dichorionic/diamniotic, unspecified trimester; O30.002 Twin pregnancy, unspecified number of placenta and unspecified number of amniotic sacs, second trimester; Z37.2 Twins, both liveborn; Z3A.26 26 weeks gestation of pregnancy; Z20.828 Contact with and (suspected) exposure to other viral communicable diseases
CPT/HCPCS: 36415; 59025; 62322; 64488; 76937; 76942; 80053; 80307; 81001; 83735; 84560; 85025; 85027; 85610; 85730; 86850; 86900; 86901; 90715; 96372; 99140; 99213; G0379; J0290; J0690; J0702; J1885; J2175; J2250; J2274; J2405; J2590; L0625; A9270-GY